=== PATIENT | female | born 1970 | race African-American/Black ===

== ENCOUNTER → 2018-07-02 | Outpatient (CLI) | payer SELFPAY ==
[2018-07-04 14:38] LABS: HEPATITIS C VIRUS AB <0.1 s/co ratio (0.0-0.9)
[2018-07-04 23:38] LABS: HEPATITIS B SURFACE AB QUANT 23.2 mIU/mL (Immunity>9)
== END ==
LOC: LB 22:33
DX: Z02.1 Encounter for pre-employment examination (principal)
CPT/HCPCS: 36415; 86317; 86701; 86803; 86804